=== PATIENT | female | born 1985 | race Two or more races ===

== ENCOUNTER 2024-06-04 09:27 | Emergency (ER) | payer OTHER ==
[~2024-06-04] VITALS: Ht 162.6 cm; Wt 77.1 kg
[2024-06-04] MEDS ORDERED: MONTELUKAST SODI4 M1 PO (10:11)
[2024-06-04] MEDS ORDERED: FLONASE SENSIM5.9 ML NS (10:12)
[2024-06-04] MEDS ORDERED: KETO10TA2 PO (10:35)
[2024-06-04] MEDS ORDERED: NORFLEX100MG PO (10:35)
[2024-06-04] MEDS ORDERED: KETOROLAC TROMETHAMINE 60 MG VIAL IM ONE ×2 (10:38→10:45)
[2024-06-04] MEDS ORDERED: ORPHENADRINE CITRATE 30 MG/ML AMPUL ONE (10:38)
[2024-06-04] MEDS ORDERED: ORPHENADRINE CITRATE 30 MG/ML AMPUL IM ONE (10:45)
== END 2024-06-04 11:14 | disposition home or self-care (01) ==
LOC: ER 09:30
DX: M54.50 Low back pain, unspecified (principal); J45.909 Unspecified asthma, uncomplicated